=== PATIENT | female | born 1940 | race Caucasian/White ===

== ENCOUNTER 2025-04-10 08:53 | Inpatient (IN) | payer MEDICARE, OTHER ==
[~2025-04-10] VITALS: Ht 154.9 cm; Wt 51.3 kg
[2025-04-10] MEDS ORDERED: BUPIVACAINE 0.5 % PF 150 MG/30 ML VIAL ONE (11:24)
[2025-04-10] MEDS ORDERED: GENTAMICIN 80 MG/2 ML VIAL ONE (11:24)
[2025-04-10] MEDS ORDERED: LIDOCAINE 2%-EPI 1:100,000 30 ML VIAL ONE (11:24)
[2025-04-10] MEDS ORDERED: dexaMETHasone SOD PHOSPHATE 1 ML ONE (11:25)
[2025-04-10] MEDS ORDERED: VANCOMYCIN 1 GM VIAL ONE (11:25)
[2025-04-10] MEDS ORDERED: POLYMYXIN B SULFATE 500,000 UNITS ONE (11:32)
[2025-04-10] MEDS ORDERED: CEFAZOLIN 1 GM ONE (11:33)
[2025-04-10] MEDS ORDERED: ANESTHESIA TRAY IN PYXIS 1 EA TRAY MC ONE (11:33)
[2025-04-10] MEDS ORDERED: FENTANYL PF 100MCG/2ML AMPUL ONE ×2 (11:56→15:14)
[2025-04-10] MEDS ORDERED: MIDAZOLAM HCL 2 MG/2ML VIAL ONE (11:56)
[2025-04-10] MEDS ORDERED: ROCURONIUM BROMIDE 50 MG/5 ML ONE (11:57)
[2025-04-10] MEDS ORDERED: OXYMETAZOLINE HCL NASAL SPRAY 30 ML BOTTLE NS ONE (11:57)
[2025-04-10] MEDS ORDERED: LABETALOL 20 MG/4 ML VIAL ONE (14:44)
[2025-04-10] MEDS ORDERED: FLUMAZENIL 0.5 MG VIAL ONE (16:39)
[2025-04-10] MEDS ORDERED: HYDROMORPHONE 1 MG/1 ML DISP.SYRIN IV PRN (17:30)
[2025-04-10] MEDS ORDERED: ONDANSETRON HCL/PF 4 MG/2 ML VIAL IV PRN ×2 (17:30)
[2025-04-10] MEDS: IV NS 0.9% 1,000 ML IV PRN (17:37)
[2025-04-10 20:00] VITALS: BP 131/74; TEMP 97.9; O2SAT 99
[2025-04-10] MEDS: ZOSYN IVPB 3.375 G in IV D5W 50ml IV SCH (20:37)
[2025-04-10] MEDS: VANCOMYCIN 1 GM in IV D5W 250ml IV SCH (23:47)
[2025-04-11] MEDS ORDERED: FISH1CAP16 PO (07:59)
[2025-04-11] MEDS ORDERED: CRAN300T PO (07:59)
[2025-04-11] MEDS ORDERED: CALC500T52 PO (07:59)
[2025-04-11] MEDS ORDERED: SITA25TA PO (07:59)
[2025-04-11] MEDS ORDERED: MULT-1201 PO (07:59)
[2025-04-11] MEDS ORDERED: ATOR10TA PO (07:59)
[2025-04-11] MEDS ORDERED: CETI-194 PO (07:59)
[2025-04-11] MEDS ORDERED: ASCO100058 PO (07:59)
[2025-04-11] MEDS ORDERED: CHOL200059 PO (07:59)
[2025-04-11] MEDS: P-EPHED SUL/LORATADINE(12H) 1 TAB.SR.12H PO SCH (08:34)
== END 2025-04-11 15:16 | disposition home or self-care (01) | DRG 141 ==
LOC: DS 08:53 → MED 19:39
PROVIDERS: ADMIT Internal Medicine; ATTEND Internal Medicine
PROC: 0NSR04Z Reposition Maxilla with Internal Fixation Device, Open Approach (ICD-10-PCS; 2025-04-10)
PROC: 0N5T0ZZ Destruction of Right Mandible, Open Approach (ICD-10-PCS; 2025-04-10)
PROC: 0NST0ZZ Reposition Right Mandible, Open Approach (ICD-10-PCS; 2025-04-10)
PROC: 0NUT07Z Supplement Right Mandible with Autologous Tissue Substitute, Open Approach (ICD-10-PCS; 2025-04-10)
PROC: 0NUR07Z Supplement Maxilla with Autologous Tissue Substitute, Open Approach (ICD-10-PCS; 2025-04-10)
PROC: 09UR07Z Supplement Left Maxillary Sinus with Autologous Tissue Substitute, Open Approach (ICD-10-PCS; 2025-04-10)
PROC: 0NUR0JZ Supplement Maxilla with Synthetic Substitute, Open Approach (ICD-10-PCS; 2025-04-10)
PROC: 0N5R0ZZ Destruction of Maxilla, Open Approach (ICD-10-PCS; principal; 2025-04-10 10:55)
DX: S02.40DB Maxillary fracture, left side, initial encounter for open fracture (principal); M87.9 Osteonecrosis, unspecified; X58.XXXA Exposure to other specified factors, initial encounter; Y92.9 Unspecified place or not applicable; M27.2 Inflammatory conditions of jaws; E78.5 Hyperlipidemia, unspecified; E11.9 Type 2 diabetes mellitus without complications; I10 Essential (primary) hypertension; I08.0 Rheumatic disorders of both mitral and aortic valves; Z79.84 Long term (current) use of oral hypoglycemic drugs; Z79.899 Other long term (current) drug therapy; M85.60 Other cyst of bone, unspecified site; S02.40CA Maxillary fracture, right side, initial encounter for closed fracture; S02.609B Fracture of mandible, unspecified, initial encounter for open fracture; J32.0 Chronic maxillary sinusitis; M84.9 Disorder of continuity of bone, unspecified; K13.79 Other lesions of oral mucosa; D16.4 Benign neoplasm of bones of skull and face; D16.5 Benign neoplasm of lower jaw bone
CPT/HCPCS: 82962-TC; 88305-TC; 88311-TC; A4217; A4338; C1713; C1781; G0378; J0690; J1100; J1580; J2250; J2405; J2543; J2704; J2765; J3010; J3373; J3490; J7030; J7050; J7060